=== PATIENT | male | born 1930 | race Two or more races ===

== ENCOUNTER 2018-10-15 23:07 | Inpatient (IN) | payer MEDICAID ==
[~2018-10-15] VITALS: Ht 180.3 cm; Wt 68.0 kg
--- NOTE | 2018-10-15 23:15 | NUR ---
PT CEASAR. C/O "HE STOOD UP AND ALMOST FAINTED, I COUGHT HIM"-VIA DAUGHTER.-SOB. -ACUTE DISTRESS. -PAIN.
[2018-10-15] MEDS ORDERED: IV NS 0.9% 1,000 ML BAG IV ONE (23:30)
[2018-10-15 23:32] LABS: BASOPHILS % (AUTO) 0.3 % (0.0-2.0); EOSINOPHILS % (AUTO) 0.3 % (0.0-6.0); LYMPHOCYTES # (AUTO) 2.1 /CMM (0.8-4.8); LYMPHOCYTES % (AUTO) 16.4 % (20.0-44.0); MEAN CORPUSCULAR HGB CONC 30 g/dl (31.0-36.0); MEAN CORPUSCULAR VOLUME 64 fL (80-96); MONOCYTES # (AUTO) 0.8 /CMM (0.1-1.30); MONOCYTES % (AUTO) 6.5 % (2.0-12.0); NEUTROPHILS # (AUTO) 9.7 /CMM (1.8-8.9); NEUTROPHILS % (AUTO) 76.5 % (43.0-81.0); PLATELET COUNT (AUTO) 283 /CMM (150-450); RED BLOOD CELL COUNT(AUTO) 2.48 MIL/uL (4.5-6.0); WHITE BLOOD COUNT (AUTO) 12.7 K/uL (4.3-11.0)
[2018-10-15 23:34] LABS: HEMATOCRIT 16 % (39-51); HEMOGLOBIN 4.8 g/dL (13.5-17.5)
[2018-10-15 23:38] LABS: CARBON DIOXIDE 23 mmol/L (21-32); CHLORIDE 111 mmol/L (98-107); CREATININE 1.9 mg/dL (0.6-1.3); GLUCOSE 159 mg/dL (74-106); POTASSIUM 4.7 mmol/L (3.5-5.1); SODIUM SERUM 142 mmol/L (136-145); UREA NITROGEN, BLOOD 72 mg/dL (7-18)
[2018-10-15 23:49] LABS: ALANINE AMINOTRANSFERASE 11 U/L (12-78); ALBUMIN 2.2 g/dL (3.4-5.0); ALKALINE PHOSPHATASE 45 U/L (46-116); ASPARTATE AMINOTRANSFERASE 14 U/L (15-37); BILIRUBIN,DIRECT 0.1 mg/dL (0.0-0.2); BILIRUBIN,TOTAL 0.2 mg/dL (0.2-1.0); TOTAL PROTEIN, SERUM 5.5 g/dL (6.4-8.2)
[2018-10-16] VITALS (14 sets, daily range): BP systolic 93–153; BP diastolic 47–76
[2018-10-16 00:35] LABS: LYMPHOCYTES % (MANUAL) 12 % (16-48)
[2018-10-16 00:36] LABS: MONOCYTES % (MANUAL) 5 % (0-11.0); NEUTROPHILS % (MANUAL) 83 (42-76)
--- NOTE | 2018-10-16 01:39 | NUR ---
DR. REES SPEAKING TO DR. ESPINOZA REGARDING PLAN OF CARE.
--- NOTE | 2018-10-16 01:51 | NUR ---
PT AOX4. NO REACTION TO BLOOD TRANSFUSION. FAMILY AT BEDSIDE.
--- NOTE | 2018-10-16 01:57 | NUR ---
REPORT GIVEN TO PHOENIX RUIZ.
[2018-10-16] MEDS ORDERED: HYDROCODONE/APAP 5/325MG 1 EACH TABLET PO PRN (02:00)
[2018-10-16] MEDS ORDERED: Z GUARD REMEDY 2 OZ OINT TP PRN (02:00)
[2018-10-16] MEDS ORDERED: ACETAMINOPHEN 325 MG TABLET PO PRN (02:00)
[2018-10-16] MEDS ORDERED: IV NS 0.9% 1,000 ML IV SCH (02:00)
[2018-10-16] MEDS ORDERED: ZOLPIDEM TARTRATE 5 MG TABLET PO PRN (02:00)
--- NOTE | 2018-10-16 02:15 | NUR ---
RN ANAM NOTE PATIENT IS AOX3, RECEIVED VIA STRETCHER FROM ER, SPEECH CLEAR, INDONESIAN SPEAKING, DAUGHTER AT BEDSIDE, RAC #18G INFUSING PRBC, LAC #18G SL BOTHER PATENT FLUSHING WELL, DRESSINGS ARE CLEAN/DRY/INTACT, PALLOR, PT DENIES ANY PAIN OR DIZZINESS, NO CARDIAC OR RESPIRATORY DISTRESS, ON TELE SR WITH PAC/PVC, CONDOM CATHETER IN PLACE NO URINE DRAINING CURRENTLY, SKIN IS DRY AND INTACT, SAFETY MAINTAINED AT ALL TIMES, BED IN LOW LOCKED POSITION, ALL LIGHT WITHIN REACH, WILL CONTINUE TO MONITOR FOR ANY CHANGES IN CONDITION.
--- NOTE | 2018-10-16 03:46 | NUR ---
RN ANAM NOTE BLOOD TRANSFUSION IS COMPLETED IV FLUSHED, NO ADVERSE REACTIONS NOTED, WILL CONTINUE TO MONITOR SAFETY MAINTAINED.
[2018-10-16 04:43] LABS: APPEARANCE,URINE CLEAR (CLEAR); BILIRUBIN,URINE NEGATIVE (NEGATIVE); BLOOD, URINE NEGATIVE Ery/uL (NEGATIVE); COLOR,URINE YELLOW (YELLOW); KETONES,URINE NEGATIVE (NEGATIVE); LEUKOCYTE ESTERASE ,URINE NEGATIVE (NEGATIVE); NITRITE, URINE NEGATIVE (NEGATIVE); PH,URINE 5.5 (5.0-8.0); PROTEIN,URINE NEGATIVE (NEGATIVE); UGLUCOSE NEGATIVE (NEGATIVE); UROBILINOGEN,URINE 0.2 EU/dL (0.2)
[2018-10-16 04:45] LABS: BASOPHILS % (AUTO) 0.2 % (0.0-2.0); EOSINOPHILS % (AUTO) 0.3 % (0.0-6.0); LYMPHOCYTES # (AUTO) 1.9 /CMM (0.8-4.8); LYMPHOCYTES % (AUTO) 16.1 % (20.0-44.0); MEAN CORPUSCULAR HGB CONC 31 g/dl (31.0-36.0); MEAN CORPUSCULAR VOLUME 72 fL (80-96); MONOCYTES # (AUTO) 0.7 /CMM (0.1-1.30); MONOCYTES % (AUTO) 5.7 % (2.0-12.0); NEUTROPHILS # (AUTO) 9.2 /CMM (1.8-8.9); NEUTROPHILS % (AUTO) 77.7 % (43.0-81.0); PLATELET COUNT (AUTO) 206 /CMM (150-450); WHITE BLOOD COUNT (AUTO) 11.9 K/uL (4.3-11.0)
[2018-10-16 05:06] LABS: HEMATOCRIT 16 % (39-51)
[2018-10-16 05:07] LABS: HEMOGLOBIN 5.1 g/dL (13.5-17.5)
[2018-10-16 05:18] LABS: BAND % (MANUAL) 1 % (0.0-5.0); LYMPHOCYTES % (MANUAL) 15 % (16-48); NEUTROPHILS % (MANUAL) 80 (42-76)
[2018-10-16 05:19] LABS: MONOCYTES % (MANUAL) 4 % (0-11.0)
--- NOTE | 2018-10-16 06:15 | NUR ---
RN ANAM NOTE CALL TO DR STAFFORD ORDER TO TRANSFUSE 3 MORE UNITS OF PRBC DUE TO HGB/HCT 4.8/ TO 5.1/, ORDER PLACED.
--- NOTE | 2018-10-16 07:00 | NUR ---
RN OPENING NOTES RECEIVED REPORT FROM SUPERINTENDENT PIPELINES RN. PT IS A&OX3 BULGARIAN SPEAKING ONLY. DAUGHTER IS BEDSIDE SHE TRANSLATES FOR HIM. PT HAS L AC 18 GAUGE RUNNING NS @125 ML/HR.PT HAS RIGHT AC 18 GAUGE SALINE LOCKED. PT DENIES ANY PAIN AT PRESENT MOMENT AND DENIES ANY RESPIRATORY DISTRESS.
--- NOTE | 2018-10-16 08:35 | NUR ---
MD HASSANIAN AT BEDSIDE ORDER CBC AFTER SECOND PRBC TRANSFUSION. MD ORDER CLEAR LIQUIDS DIET.
[2018-10-16 09:03] LABS: CALCIUM, SERUM 7.4 mg/dL (8.5-10.1); CARBON DIOXIDE 22 mmol/L (21-32); CHLORIDE 116 mmol/L (98-107); CREATININE 1.6 mg/dL (0.6-1.3); GLUCOSE 150 mg/dL (74-106); POTASSIUM 4.7 mmol/L (3.5-5.1); SODIUM SERUM 148 mmol/L (136-145); UREA NITROGEN, BLOOD 77 mg/dL (7-18)
[2018-10-16] MEDS: ONDANSETRON HCL/PF 4 MG/2 ML VIAL IVP PRN (11:25)
[2018-10-16 12:07] LABS: BASOPHILS % (AUTO) 0.3 % (0.0-2.0); HEMATOCRIT 22 % (39-51); LYMPHOCYTES # (AUTO) 1.6 /CMM (0.8-4.8); LYMPHOCYTES % (AUTO) 11.5 % (20.0-44.0); MEAN CORPUSCULAR HGB CONC 31 g/dl (31.0-36.0); MEAN CORPUSCULAR VOLUME 74 fL (80-96); MONOCYTES # (AUTO) 0.8 /CMM (0.1-1.30); MONOCYTES % (AUTO) 5.9 % (2.0-12.0); NEUTROPHILS % (AUTO) 81.3 % (43.0-81.0); PLATELET COUNT (AUTO) 206 /CMM (150-450); RED BLOOD CELL COUNT(AUTO) 2.92 MIL/uL (4.5-6.0); WHITE BLOOD COUNT (AUTO) 13.5 K/uL (4.3-11.0)
[2018-10-16 12:10] LABS: HEMOGLOBIN 6.7 g/dL (13.5-17.5)
--- NOTE | 2018-10-16 12:29 | NUR ---
RN NOTE: RECEIVED A PHONE CALL FROM DR. ESTRADA RE: THE HGB AND HCT (6.7/22.0) POST 2 BAGS OF PRBC. PER MD, OK TO GIVE ANOTHER 1 PRBC AND RECHECK CBC AT 1900 TONIGHT. PROTONIX 40 MG IV BID WAS ALSO ORDERED BY . ORDER, NOTED AND CARRIED OUT. PRUDENCIO, DAUGHTER MADE AWARE.
[2018-10-16 12:33] LABS: LYMPHOCYTES % (MANUAL) 11 % (16-48); MONOCYTES % (MANUAL) 3 % (0-11.0); NEUTROPHILS % (MANUAL) 86 (42-76)
[2018-10-16] MEDS: PANTOPRAZOLE 40 MG VIAL IV SCH ×2 (13:15→21:05)
[2018-10-16] MEDS: IV NS 0.9% 1,000 ML IV PRN (14:25)
[2018-10-16] MEDS ORDERED: PEG 3350/NA SULF,BICARB,CL/KCL 4,000 ML BOTTLE PO ONE (17:30)
--- NOTE | 2018-10-16 18:30 | NUR ---
RN NOTE: PATIENT'S DAUGHTER PRUDENCIO PRESENT AT THE BEDSIDE AND SIGNED THE INFORMED CONSENT FOR THE EGD AND COLONOSCOPY PROCEDURE FOR THE PATIENT IN AM. DR. POTTER CAME AND EXPLAINED THE PROCEDURE TO THE PATIENT AND DAUGHTER. NO QUESTIONS WERE ASKED BY THE DAUGHTER AND PATIENT. REMINDED THE DAUGHTER AND PATIENT THAT DUE TO THE PROCEDURE THE PATIENT NEEDS TO BE NPO EXCEPT MEDICATIONS AFTER MIDNIGHT PER DR. POTTER. PATIENT AND DAUGHTER UNDERSTOOD.
--- NOTE | 2018-10-16 19:26 | NUR ---
RN CLOSING NOTES GAVE REPORT TONIGHT SHIFT RN. PT IS A&OX3 POLISH SPEAKING ONLY. PT HAS L AC 18 GAUGE RUNNING NS @125 ML/HR.PT HAS RIGHT AC 18 GAUGE SALINE LOCKED. PT DENIES ANY PAIN AT PRESENT MOMENT AND DENIES ANY RESPIRATORY DISTRESS.3 UNITS OF PRBC TRANSFUSED WAITING FOR CBC RESULTS. NC O2 2L. PT IS RESTING IN BED.
[2018-10-16 20:54] LABS: BASOPHILS # (AUTO) 0.1 /CMM (0.0-0.2); BASOPHILS % (AUTO) 0.4 % (0.0-2.0); EOSINOPHILS % (AUTO) 1.9 % (0.0-6.0); HEMATOCRIT 23 % (39-51); HEMOGLOBIN 7.3 g/dL (13.5-17.5); LYMPHOCYTES # (AUTO) 1.5 /CMM (0.8-4.8); MEAN CORPUSCULAR HGB CONC 32 g/dl (31.0-36.0); MEAN CORPUSCULAR VOLUME 76 fL (80-96); MONOCYTES # (AUTO) 0.8 /CMM (0.1-1.30); MONOCYTES % (AUTO) 6.8 % (2.0-12.0); NEUTROPHILS # (AUTO) 9.6 /CMM (1.8-8.9); NEUTROPHILS % (AUTO) 78.9 % (43.0-81.0); PLATELET COUNT (AUTO) 171 /CMM (150-450); RED BLOOD CELL COUNT(AUTO) 2.99 MIL/uL (4.5-6.0); WHITE BLOOD COUNT (AUTO) 12.2 K/uL (4.3-11.0)
[2018-10-17] VITALS (8 sets, daily range): BP systolic 113–135; BP diastolic 52–80
[2018-10-17] MEDS: IV NS 0.9% 1,000 ML IV PRN ×3 (00:20→16:48)
[2018-10-17 03:41] LABS: BASOPHILS # (AUTO) 0.1 /CMM (0.0-0.2); BASOPHILS % (AUTO) 0.4 % (0.0-2.0); EOSINOPHILS % (AUTO) 3.5 % (0.0-6.0); HEMATOCRIT 21 % (39-51); LYMPHOCYTES # (AUTO) 1.9 /CMM (0.8-4.8); LYMPHOCYTES % (AUTO) 16.2 % (20.0-44.0); MEAN CORPUSCULAR HGB CONC 32 g/dl (31.0-36.0); MEAN CORPUSCULAR VOLUME 76 fL (80-96); MONOCYTES # (AUTO) 0.8 /CMM (0.1-1.30); MONOCYTES % (AUTO) 6.5 % (2.0-12.0); NEUTROPHILS # (AUTO) 8.7 /CMM (1.8-8.9); NEUTROPHILS % (AUTO) 73.4 % (43.0-81.0); PLATELET COUNT (AUTO) 160 /CMM (150-450); RED BLOOD CELL COUNT(AUTO) 2.77 MIL/uL (4.5-6.0); WHITE BLOOD COUNT (AUTO) 11.9 K/uL (4.3-11.0)
[2018-10-17 03:45] LABS: HEMOGLOBIN 6.8 g/dL (13.5-17.5)
[2018-10-17 04:09] LABS: CALCIUM, SERUM 7.3 mg/dL (8.5-10.1); CARBON DIOXIDE 22 mmol/L (21-32); CHLORIDE 117 mmol/L (98-107); CREATININE 1.3 mg/dL (0.6-1.3); GLUCOSE 120 mg/dL (74-106); MAGNESIUM 1.8 mg/dL (1.8-2.4); PHOSPHORUS 2.2 mg/dL (2.5-4.9); POTASSIUM 4.4 mmol/L (3.5-5.1); SODIUM SERUM 149 mmol/L (136-145); UREA NITROGEN, BLOOD 42 mg/dL (7-18)
[2018-10-17 04:13] LABS: CHOLESTEROL 63 mg/dL (<200); HDL CHOLESTEROL 18 mg/dL (40-60); LDL 35 mg/dL (0-99); TRIGLYCERIDES 104 mg/dL (30-150)
--- NOTE | 2018-10-17 04:47 | NUR ---
RN NOTES RECEIVED PATIENT AWAKE IN BED, RESTING COMFORTABLY WITH NO DISTRESS NOTED. ALERT AND ORIENTED, VERBALLY ABLE TO COMMUNICATE NEEDS. AMBULATORY. CONTINENT. WAITING FOR RESULT OF HEMOGLOBIN LEVEL FOR 4TH BAG OF PRBC. RECEIVED RESULT AT ABOUT 2300, FROM 6.7 TO 7.3. PRBC NOT ADMINISTERED DUE TO RESULT. PATIENT COMPLAINING OF SORE THROAT AND NECK PAIN. CALLED MD AND OBTAINED ORDER FOR CEPACOL AND NORCO. GAVE NORCO, WITH RELEIF. WILL CONTINUE TO MONITOR. AT ABOUT 0300, HEMOGLOBIN LEVEL WAS TAKEN AND RESULTED IN 6.8 HGB LEVEL. CALLED MD AND ORDERED ANOTHER TEST AT 0600.
[2018-10-17 06:20] LABS: LYMPHOCYTES % (MANUAL) 14 % (16-48); MONOCYTES % (MANUAL) 6 % (0-11.0); NEUTROPHILS % (MANUAL) 80 (42-76)
[2018-10-17 07:50] LABS: BASOPHILS % (AUTO) 0.3 % (0.0-2.0); EOSINOPHILS % (AUTO) 3.8 % (0.0-6.0); HEMATOCRIT 24 % (39-51); HEMOGLOBIN 7.6 g/dL (13.5-17.5); LYMPHOCYTES # (AUTO) 1.9 /CMM (0.8-4.8); MEAN CORPUSCULAR HGB CONC 31 g/dl (31.0-36.0); MEAN CORPUSCULAR VOLUME 78 fL (80-96); MONOCYTES # (AUTO) 0.7 /CMM (0.1-1.30); MONOCYTES % (AUTO) 5.9 % (2.0-12.0); NEUTROPHILS # (AUTO) 8.8 /CMM (1.8-8.9); PLATELET COUNT (AUTO) 170 /CMM (150-450); RED BLOOD CELL COUNT(AUTO) 3.11 MIL/uL (4.5-6.0); WHITE BLOOD COUNT (AUTO) 11.8 K/uL (4.3-11.0)
[2018-10-17] MEDS: PANTOPRAZOLE 40 MG VIAL IV SCH ×2 (08:44→21:40)
--- NOTE | 2018-10-17 10:18 | NUR ---
MARKET GARDEN WORKER OPENING NOTES RECEIVED REPORT FROM PM NURSE. PATIENT AWAKE IN BED, RESTING COMFORTABLY WITH NO DISTRESS NOTED. ALERT AND ORIENTEDX2, INDONESIAN SPEAKING.VERBALLY ABLE TO COMMUNICATE NEEDS. AMBULATORY. CONTINENT. ON TELE MONITOR SR HR 61.IV ON L AC #18 WITH NS @125CC/HR.BED IS LOCKED AND IN LOW POSITION.CALL LIGHT IN REACH.SRX4.BED ALARM ON.WILL CONTINUE TO MONITOR.
[2018-10-17] MEDS ORDERED: K PHOS NEUTRAL 250 MG TABLET PO ONE (11:30)
[2018-10-17 11:33] LABS: FERRITIN 35 ng/mL (8-388)
[2018-10-17 11:37] LABS: IRON, SERUM 22 ug/dl (50-175); TOTAL IRON BINDING CAPACITY 231 ug/dl (250-450)
[2018-10-17 12:25] LABS: FREE PSA 0.86 ng/mL (0.00-45); PROSTATE SPECIFIC ANTIGEN SCR 4.22 ng/mL (0.00-4.00)
--- NOTE | 2018-10-17 12:30 | NUR ---
INSPECTOR EYEGLASS NOTE SEEN BY .UPDATED ABOUT PATIENT CONDITION. ,KEMAL AWARE ABOUT ENDOSCOPY AND COLONOSCOPY,REQUESTED TO F/U WITH DR.TATOYAN LATONYA.LEFT MESSAGE.WAITING FOR REPLY.CALL MADE TO SURGERY.PATIENT NOT ON SCHEDULE.KEPT NPO.ON IVF.WILL CONTINUE TO MONITOR.
[2018-10-17] MEDS ORDERED: METO25TA6 PO (14:45)
[2018-10-17] MEDS ORDERED: ASPI-1169 PO (14:45)
[2018-10-17] MEDS ORDERED: LANS30CA56 PO (14:45)
--- NOTE | 2018-10-17 19:04 | NUR ---
ACCREDITED LEGAL SECRETARY CLOSING NOTE PATIENT IN BED.TRIED TO GET UP HIMSELF ,REORIENTED PATIENT.INSTRUCTED TO CALL FOR HELP.PATIENT IN STABLE CONDITION.WAITING FOR GI FOLLOW UP.NPO EXCEPT MEDS.WILL ENDORSE TO PM NURSE FOR JOSH.
[2018-10-17 20:39] LABS: OCCULT BLOOD STOOL POSITIVE (NEGATIVE)
[2018-10-18] VITALS: BP 135/54
[2018-10-18] MEDS: IV NS 0.9% 1,000 ML IV PRN ×2 (00:57→14:48)
[2018-10-18 04:00] VITALS: BP 109/60
--- NOTE | 2018-10-18 07:20 | NUR ---
BB SHOT PACKER OPENING NOTES RECEIVED REPORT FROM MACHINE ADJUSTER LEADER CASE TRIM NURSE. ON 02 2L VIA NC. TOLERATING WELL. PATIENT AWAKE IN BED, RESTING COMFORTABLY WITH NO DISTRESS NOTED. ALERT AND ORIENTEDX1, VERY CONFUSED. DANISH SPEAKING. VERBALLY ABLE TO COMMUNICATE NEEDS. AMBULATORY. CONTINENT. ON TELE MONITOR SR HR 61. IV ON R WRIST #20 WITH NS @125CC/HR. BED IS LOCKED AND IN LOW POSITION. CALL LIGHT IN REACH. BED ALARM ON. WILL CONTINUE TO MONITOR PATIENT CLOSELY.
[2018-10-18 07:34] LABS: CALCIUM, SERUM 7.3 mg/dL (8.5-10.1); CARBON DIOXIDE 19 mmol/L (21-32); CHLORIDE 118 mmol/L (98-107); CREATININE 1.3 mg/dL (0.6-1.3); GLUCOSE 95 mg/dL (74-106); PHOSPHORUS 2.7 mg/dL (2.5-4.9); POTASSIUM 3.8 mmol/L (3.5-5.1); SODIUM SERUM 150 mmol/L (136-145); UREA NITROGEN, BLOOD 25 mg/dL (7-18)
[2018-10-18 08:00] VITALS: BP 130/73
[2018-10-18] MEDS: PANTOPRAZOLE 40 MG VIAL IV SCH ×2 (08:49→20:34)
[2018-10-18 12:00] VITALS: BP_SYST 135; BP_SYST 143; BP_DIAS 70; BP_DIAS 88
--- NOTE | 2018-10-18 12:05 | NUR ---
FELTING MACHINE OPERATOR NOTES PT LEFT THE UNITE WITH SURGERY TECHNICIANS VIA BED FOR EGD AND COLONOSCOPY.
[2018-10-18] MEDS ORDERED: ALBUTEROL FS 2.5 MG/3 ML VIAL.NEB ONE (13:42)
--- NOTE | 2018-10-18 14:15 | NUR ---
INFORMATION TECHNOLOGY ASSOCIATE NOTES PT BACK FROM EGD AND COLONOSCOPY. RECEIVED REPORT FROM SARA PAULINO. PT ON 02 4.5L VIA NC. TOLERATING WELL. NO SIGNS OF DISTRESS. VITAL SIGNS: TEMP 98.6, BP 142/49, HR 87, SATURATION 96. WILL CONTINUE TO MONITOR PT THROUGHOUT SHIFT.
--- NOTE | 2018-10-18 14:20 | NUR ---
TEAMCENTER CONSULTANT NOTES CALLED PHARMACY FOR FERRLECIT 125MG IN IV 0.9% NS 100ML. AWAITING FOR PHARMACY TO BRING MEDICATION TO THE UNIT. Addendum: 10/18/18 at 1521 by GRANT BARAJAS RN CALLED PHARMACY AGAIN FOR FERRLECIT 125MG IN IV 0.9% NS 100ML. AWAITING FOR PHARMACY TO BRING MEDICATION TO THE UNIT.
[2018-10-18] MEDS: SOD FERRIC GLUC 125 MG in IV NS 0.9% 100 ML IV SCH (15:37)
[2018-10-18 16:00] VITALS: BP_SYST 135; BP_SYST 143; BP_DIAS 70; BP_DIAS 88
--- NOTE | 2018-10-18 19:15 | NUR ---
TELE/RN INITIAL NOTES RECEIVED PT IN BED, ALERT AND VERBALLY RESPONSIVE, [place] SPEAKING. FAMILY AT BEDSIDE. ON 2L O2 VIA NC, NO SOB NOTED. AFIB HR 90S ON TELE. WITH ONGOING IVF NS AT 125 ML/HR INFUSING WELL ON RWRIST G20 IV. HOB ELEVATED. SAFETY MEASURES IN PLACED. CALL LIGHT WITHIN EASY REACH. WILL CONT TO MONITOR
[2018-10-18] MEDS: ALBUTEROL FS 2.5 MG/0.5 ML VIAL.NEB NEB SCH (19:30)
[2018-10-18 20:00] VITALS: BP 140/83
[2018-10-19] VITALS (9 sets, daily range): BP systolic 112–152; BP diastolic 56–80
[2018-10-19] MEDS: ALBUTEROL FS 2.5 MG/0.5 ML VIAL.NEB NEB SCH ×4 (02:08→19:12)
--- NOTE | 2018-10-19 06:46 | NUR ---
RN NOTES PT IN STABLE CONDITION. NO ACUTE CHAGNES THROUGOUT SHIFT. RWRIST G20 IV KEPT INTACT AND PATENT. SAFETY MEASURES MAINTAINED. ALL NEEDS ANTICIPATED. ENDORSED TO AM SHIFT RN FOR JOSH
[2018-10-19 06:53] LABS: BASOPHILS % (AUTO) 0.4 % (0.0-2.0); EOSINOPHILS % (AUTO) 4.4 % (0.0-6.0); HEMATOCRIT 22 % (39-51); MEAN CORPUSCULAR HGB CONC 32 g/dl (31.0-36.0); MEAN CORPUSCULAR VOLUME 79 fL (80-96); MONOCYTES # (AUTO) 0.4 /CMM (0.1-1.30); MONOCYTES % (AUTO) 6.4 % (2.0-12.0); NEUTROPHILS # (AUTO) 4.5 /CMM (1.8-8.9); NEUTROPHILS % (AUTO) 72.8 % (43.0-81.0); PLATELET COUNT (AUTO) 146 /CMM (150-450); RED BLOOD CELL COUNT(AUTO) 2.75 MIL/uL (4.5-6.0); WHITE BLOOD COUNT (AUTO) 6.2 K/uL (4.3-11.0)
[2018-10-19 07:14] LABS: HEMOGLOBIN 6.9 g/dL (13.5-17.5)
[2018-10-19 07:18] LABS: CALCIUM, SERUM 7.7 mg/dL (8.5-10.1); CARBON DIOXIDE 22 mmol/L (21-32); CHLORIDE 115 mmol/L (98-107); CREATININE 1.2 mg/dL (0.6-1.3); GLUCOSE 99 mg/dL (74-106); MAGNESIUM 1.9 mg/dL (1.8-2.4); PHOSPHORUS 2.7 mg/dL (2.5-4.9); POTASSIUM 3.8 mmol/L (3.5-5.1); SODIUM SERUM 146 mmol/L (136-145); UREA NITROGEN, BLOOD 17 mg/dL (7-18)
--- NOTE | 2018-10-19 07:26 | NUR ---
RN NOTES RECEIVED CRITICAL LAB HGB 6.9, PT IN NO DISTRESS, NO OVERT SIGNS OF BLEEDING. ENDORSED TO ROD WARREN SHIFT RN TO FOLLOW UP WITH
[2018-10-19] MEDS: PANTOPRAZOLE 40 MG VIAL IV SCH ×2 (08:10→21:35)
[2018-10-19 08:38] LABS: BAND % (MANUAL) 1 % (0.0-5.0); EOSINOPHILS % (MANUAL) 3 % (0-4); LYMPHOCYTES % (MANUAL) 18 % (16-48); MONOCYTES % (MANUAL) 6 % (0-11.0); MYELOCYTES % 2 % (0-0); NEUTROPHILS % (MANUAL) 70 (42-76)
[2018-10-19] MEDS ORDERED: FUROSEMIDE 40 MG/4 ML VIAL IV ONE (09:30)
[2018-10-19] MEDS: SUCRALFATE 1 G TABLET PO SCH ×4 (10:13→21:35)
[2018-10-19] MEDS ORDERED: FUROSEMIDE 20 MG/2 ML VIAL IV PRN (13:00)
[2018-10-19] MEDS: ONDANSETRON HCL/PF 4 MG/2 ML VIAL IVP PRN (15:20)
[2018-10-19] MEDS: SOD FERRIC GLUC 125 MG in IV NS 0.9% 100 ML IV SCH (17:18)
--- NOTE | 2018-10-19 19:00 | NUR ---
RN NOTE PT HAD 1 UNIT PRBC TRANSFUSED, TOLERATED WELL, LASIX WAS ADMINISTERED ORDERED BEFORE AND AFTER TRANSFUSION. VS STABLE.PT CO ABOUT NAUSEA UNRELIEVED BY MEDICATION, DR MOURA NOTIFIED, HE SAW THE PT AND ORDERED HIDA SCAN. WILL ENDORSE TO MATERIAL SCHEDULER NURSE. SAFETY MEASURES IN PLACE, CALL LIGHT WITHIN REACH.
[2018-10-20] VITALS: BP 110/60
[2018-10-20] MEDS: ALBUTEROL FS 2.5 MG/0.5 ML VIAL.NEB NEB SCH ×3 (01:37→15:30)
[2018-10-20 04:00] VITALS: BP 120/68
[2018-10-20 08:00] VITALS: BP 131/70
--- NOTE | 2018-10-20 08:00 | NUR ---
RN NOTES RECEIVED PATIENT IN BED, ASLEEP BUT EASILY AWAKEN TO VERBAL STIMULI, ORIENTED TO SELF, EXPRESSES SELF BETTER IN GREEK, ON 02 AT 2L VIA NC. TOLERATING WELL. NO SOB OR ANY SIGN OF DISTRESS NOTED. SR WITH HR ON THE 60'S ON THE MONITOR . IV ON R FA G#[address] AND INTACT, PATENT ON FLUSHING. DRESSING C/D/I. NO S/S OF INFILTRATION NOTED.ENCOURAGED TO USE CALL LIGHT FOR ASSISTANCE. SAFETY MEASURES OBSERVED AND MAINTAINED. SR UP X2 BED IS LOCKED AND IN LOW POSITION. CALL LIGHT IN REACH. BED ALARM ON. WILL CONTINUE TO MONITOR PATIENT CLOSELY.
[2018-10-20] MEDS: PANTOPRAZOLE 40 MG VIAL IV SCH (08:51)
[2018-10-20] MEDS: SUCRALFATE 1 G TABLET PO SCH ×2 (08:51→12:58)
[2018-10-20 10:05] LABS: BASOPHILS % (AUTO) 0.6 % (0.0-2.0); EOSINOPHILS % (AUTO) 4.1 % (0.0-6.0); HEMATOCRIT 29 % (39-51); HEMOGLOBIN 9.2 g/dL (13.5-17.5); LYMPHOCYTES % (AUTO) 15.4 % (20.0-44.0); MEAN CORPUSCULAR HGB CONC 32 g/dl (31.0-36.0); MEAN CORPUSCULAR VOLUME 81 fL (80-96); MONOCYTES # (AUTO) 0.4 /CMM (0.1-1.30); MONOCYTES % (AUTO) 6.7 % (2.0-12.0); NEUTROPHILS # (AUTO) 4.7 /CMM (1.8-8.9); NEUTROPHILS % (AUTO) 73.2 % (43.0-81.0); PLATELET COUNT (AUTO) 169 /CMM (150-450); RED BLOOD CELL COUNT(AUTO) 3.57 MIL/uL (4.5-6.0); WHITE BLOOD COUNT (AUTO) 6.5 K/uL (4.3-11.0)
[2018-10-20 10:25] LABS: ALANINE AMINOTRANSFERASE 19 U/L (12-78); ALBUMIN 2.1 g/dL (3.4-5.0); ALKALINE PHOSPHATASE 51 U/L (46-116); ASPARTATE AMINOTRANSFERASE 25 U/L (15-37); BILIRUBIN,TOTAL 0.6 mg/dL (0.2-1.0); CALCIUM, SERUM 7.6 mg/dL (8.5-10.1); CARBON DIOXIDE 26 mmol/L (21-32); CHLORIDE 111 mmol/L (98-107); CREATININE 1.5 mg/dL (0.6-1.3); GLUCOSE 160 mg/dL (74-106); MAGNESIUM 1.8 mg/dL (1.8-2.4); PHOSPHORUS 3.5 mg/dL (2.5-4.9); POTASSIUM 3.3 mmol/L (3.5-5.1); SODIUM SERUM 147 mmol/L (136-145); TOTAL PROTEIN, SERUM 5.7 g/dL (6.4-8.2); UREA NITROGEN, BLOOD 16 mg/dL (7-18)
[2018-10-20 12:00] VITALS: BP 97/64
--- NOTE | 2018-10-20 16:00 | NUR ---
RN NOTES PATIENT DISCHARGE. SKIN ASSESSMENT DONE-SKIN INTACT. NO BELONGING ON ADMISSION. ALL QUESTIONS ADDRESSED APPROPRIATELY. MEDICATION PRESCRIPTION, MEDICATION AND DISCHARGE INSTRUCTION GIVEN TO GAYALDO (DAUGHTER) AND SON IN LAW. TELEMONITOR REMOVED. IV LINE REMOVED. ID BAND REMOVED. PATIENT CLEANED AND CLOTHED IN. PATIENT BROUGHT OUT TO THE UNIT BY RN, ACCOMPANIED BY THE DAUGHTER.
== END 2018-10-20 16:00 | disposition home or self-care (01) | DRG 241 ==
LOC: ER 23:09 → TELE-TD 10-16 01:41 → TELE1 10-16 11:48
PROVIDERS: ADMIT Family Medicine; ATTEND Family Medicine
PROC: 30233N1 Transfusion of Nonautologous Red Blood Cells into Peripheral Vein, Percutaneous Approach (ICD-10-PCS; principal; 2018-10-16)
PROC: 0DBH8ZX Excision of Cecum, Via Natural or Artificial Opening Endoscopic, Diagnostic (ICD-10-PCS; 2018-10-18)
PROC: 0DB98ZX Excision of Duodenum, Via Natural or Artificial Opening Endoscopic, Diagnostic (ICD-10-PCS; 2018-10-18)
PROC: 0DB38ZX Excision of Lower Esophagus, Via Natural or Artificial Opening Endoscopic, Diagnostic (ICD-10-PCS; 2018-10-18)
PROC: 0DB78ZX Excision of Stomach, Pylorus, Via Natural or Artificial Opening Endoscopic, Diagnostic (ICD-10-PCS; 2018-10-18)
PROC: 0DB48ZX Excision of Esophagogastric Junction, Via Natural or Artificial Opening Endoscopic, Diagnostic (ICD-10-PCS; 2018-10-18)
PROC: 0DB28ZX Excision of Middle Esophagus, Via Natural or Artificial Opening Endoscopic, Diagnostic (ICD-10-PCS; 2018-10-18)
DX: K29.81 Duodenitis with bleeding (principal); N17.0 Acute kidney failure with tubular necrosis; E87.0 Hyperosmolality and hypernatremia; D68.59 Other primary thrombophilia; E86.9 Volume depletion, unspecified; I48.91 Unspecified atrial fibrillation; D50.0 Iron deficiency anemia secondary to blood loss (chronic); D72.829 Elevated white blood cell count, unspecified; I10 Essential (primary) hypertension; I25.10 Atherosclerotic heart disease of native coronary artery without angina pectoris; I73.9 Peripheral vascular disease, unspecified; R55 Syncope and collapse; K21.0 Gastro-esophageal reflux disease with esophagitis; R53.1 Weakness; Z87.891 Personal history of nicotine dependence; K44.9 Diaphragmatic hernia without obstruction or gangrene; K63.5 Polyp of colon; K57.30 Diverticulosis of large intestine without perforation or abscess without bleeding; K29.70 Gastritis, unspecified, without bleeding
CPT/HCPCS: 36415; 70450-TC; 71045-TC; 80048-TC; 80053-TC; 80061-TC; 80076-TC; 81000-TC; 82272-TC; 82378; 82728-TC; 82962-TC; 83540-TC; 83735-TC; 84100-TC; 84153-TC; 84154-TC; 84484-TC; 85025-TC; 85730-TC; 86850-TC; 86921-TC; 87081-TC; 88305-TC; 88313-TC; 88342; 93307-TC; A4349; C9113; G0378; J1940; J2405; J2916; J3490; J7030; J7040; J7050; P9016-BL